=== PATIENT | female | born 1955 ===

== ENCOUNTER 2021-12-11 11:00 | Inpatient (IN) | payer OTHER ==
[~2021-12-11] VITALS: Ht 157.5 cm; Wt 52.6 kg
[2021-12-11] MEDS ORDERED: CRESTOR5 MG PO (13:15)
[2021-12-11] MEDS ORDERED: TENORMIN50 M1 PO (13:15)
[2021-12-11] MEDS ORDERED: D3 + K2 DOTS 11 EACH PO (13:15)
[2021-12-17] MEDS ORDERED: ARTHRITIS PAIN650 MG (08:32)
[2021-12-17] MEDS ORDERED: EYE WASH IRRIG118 ML (08:32)
[2021-12-17] MEDS ORDERED: VITAMIN D3250 MCG (08:33)
[2021-12-17] MEDS ORDERED: CLOTRIMAZOLE-BE15 G1 (08:33)
[2021-12-17] MEDS ORDERED: SYSTANE 0.3-0.415 ML (08:33)
== END 2021-12-18 11:26 | disposition home or self-care (01) | DRG 330 ==
LOC: SURG 12-14 06:35 → O/R 12-14 06:35 → SURG 12-14 11:00
PROVIDERS: ADMIT Surgery; ATTEND Surgery
PROC: 07BB4ZZ Excision of Mesenteric Lymphatic, Percutaneous Endoscopic Approach (ICD-10-PCS; 2021-12-14)
PROC: 0DTF4ZZ Resection of Right Large Intestine, Percutaneous Endoscopic Approach (ICD-10-PCS; principal; 2021-12-14 14:00)
DX: D12.2 Benign neoplasm of ascending colon (principal); K62.5 Hemorrhage of anus and rectum; K57.30 Diverticulosis of large intestine without perforation or abscess without bleeding; D12.1 Benign neoplasm of appendix; R59.0 Localized enlarged lymph nodes; Z20.822 Contact with and (suspected) exposure to COVID-19; I10 Essential (primary) hypertension